=== PATIENT | female | born 1955 | race Caucasian/White ===

== ENCOUNTER 2017-08-30 09:39 | Outpatient (CLI) | payer BC | END 2017-08-30 18:55 | disposition home or self-care (01) | LOC: SMA 09:39 | PROVIDERS: ATTEND General Practice | DX: R92.8 Other abnormal and inconclusive findings on diagnostic imaging of breast (principal) | CPT/HCPCS: 76641; 77066 ==

== ENCOUNTER 2018-11-18 08:08 | Outpatient (CLI) | payer BC | END 2018-11-18 20:55 | disposition home or self-care (01) | LOC: SMA 08:08 | PROVIDERS: ATTEND Physician Assistant Medical | DX: Z12.31 Encounter for screening mammogram for malignant neoplasm of breast (principal) | CPT/HCPCS: 77067 ==

== ENCOUNTER 2019-11-13 08:33 | Outpatient (CLI) | payer BC | END 2019-11-13 21:06 | disposition home or self-care (01) | LOC: SMA 08:33 | PROVIDERS: ATTEND General Practice | DX: Z12.31 Encounter for screening mammogram for malignant neoplasm of breast (principal); N64.89 Other specified disorders of breast | CPT/HCPCS: 77067 ==